=== PATIENT | female | born 1950 | race Caucasian/White ===

== ENCOUNTER 2023-02-15 08:15 | Emergency (ER) | payer MEDICARE, OTHER ==
[2023-02-15 08:42] VITALS: TEMP 98
--- NOTE | 2023-02-15 08:47 | ERPHSYRPT ---
- History of Present Illness Time Seen by Provider: 02/15/23 08:25 Source: patient Exam Limitations: no limitations Patient Subjective Stated Complaint: C/O Swelling to left hand, wrist, lower arm from a wasp sting yesterday Triage Nursing Assessment: Patient ambulated back to ER. She is alert and oriented. No SOB. No wheezing. Left hand, lower left arm are swollen. Hand is tight. Radial pulse present. Physician History: This is a 72-year-old white female patient who presents to the emergency room with swelling of her left hand in the area of a wasp sting that occurred yesterday. Patient states that she has had wasp sting in the past and they have gone away with ice. However, the swelling in the dorsal aspect of her left hand has increased despite ice pack and Claritin antihistamine. Patient has no difficulty swallowing and no shortness of breath. She denies chest pain. She has no wheezing and no stridor. This patient has a history of diabetes, hypertension, coronary disease and hyperlipidemia. Timing/Duration: yesterday Quality: itchy Severity: mild Location: hands (Left hand) Possible Causes: insect sting Modifying Factors: Improves With: antihistamine (Did not help much) Associated Symptoms: denies symptoms Allergies/Adverse Reactions: Penicillins Allergy (Verified 02/15/23 08:24) Hx Tetanus, Diphtheria Vaccination/Date Given: Yes Hx Influenza Vaccination/Date Given: Yes Hx Pneumococcal Vaccination/Date Given: Yes Immunizations Up to Date: Yes Travel Risk - International Travel Have you traveled outside of the country in past 3 weeks: No - Coronavirus Screening Are you exhibiting any of the following symptoms?: No Close contact with a COVID-19 positive Pt in past 14-21 Days: No - Vaccine Status Have you recieved a Covid-19 vaccination: Yes 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 - Review of Systems Constitutional: No Symptoms Eyes: No Symptoms Ears, Nose, & Throat: No Symptoms Respiratory: No Symptoms Cardiac: No Symptoms Abdominal/Gastrointestinal: No Symptoms Genitourinary Symptoms: No Symptoms Musculoskeletal: Other (Swelling left hand) Skin: Other (Swelling left hand) Neurological: No Symptoms Psychological: No Symptoms Endocrine: No Symptoms Hematologic/Lymphatic: No Symptoms Immunological/Allergic: No Symptoms All Other Systems: Reviewed and Negative - Past Medical History Pertinent Past Medical History: Yes Neurological History: No Pertinent History ENT History: No Pertinent History Cardiac History: Coronary Artery Disease, High Cholesterol, Hypertension, Myocardial Infarction ([place]) Respiratory History: No Pertinent History Endocrine Medical History: Diabetes Type II Musculoskeletal History: No Pertinent History History: No Pertinent History Psycho-Social History: No Pertinent History Female Reproductive Disorders: No Pertinent History - Past Surgical History Past Surgical History: Yes Cardiac: Cardiac Catheterization, Cardiac Stent Female Surgical History: Hysterectomy, Section Other Surgical History: back surgery - Social History Smoking Status: Never smoker Exposure to second hand smoke: No Drug Use: none Patient Lives Alone: No - Nursing Vital Signs Nursing Vital Signs: Initial Vital Signs Temperature 98 F 02/15/23 08:17 Pulse Rate 68 02/15/23 08:17 Respiratory Rate 17 02/15/23 08:17 Blood Pressure 165/86 02/15/23 08:17 O2 Sat by Pulse Oximetry 97 02/15/23 08:17 Pain Scale Pain Intensity 7 - Physical Exam General Appearance: no apparent distress, alert Eye Exam: PERRL/EOMI, eyes nml inspection Ears, Nose, Throat Exam: normal ENT inspection, moist mucous membranes Neck Exam: normal inspection, non-tender, supple, full range of motion Respiratory Exam: normal breath sounds, lungs clear, airway intact, No chest tenderness, No respiratory distress Cardiovascular Exam: regular rate/rhythm, normal heart sounds, normal peripheral pulses Gastrointestinal/Abdomen Exam: No tenderness Rectal Exam: not done Back Exam: normal inspection, normal range of motion, No CVA tenderness, No ve rtebral tenderness Extremity Exam: normal range of motion, pelvis stable, swelling (Left hand and distal wrist on the left side), other (No cellulitis) Neurologic Exam: alert, oriented x 3, 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 The level of complexity in the work-up performed is based on review of the patient's past medical history, review of the patient's medication list, review the patient's drug allergy list, history of present illness and physical findings on examination. No laboratory or radiographic studies are necessary in this patient. We will provide the patient with 125 mg intramuscular Solu-Medrol, 40 mg of Pepcid orally and 25 mg of hydroxyzine orally. We will reassess the patient prior to discharge to home. We will remotely send similar medication prescriptions to her pharmacy. Counseled pt/family regarding: diagnosis, need for follow-up Medical Desision Making - Diagnostic Testing Diagnostic test were ordered, analyzed, and reviewed by me: No - Risk of complications The pt has a mod risk of morbidity or mortality based on: Need for prescription drug management - Departure Departure Disposition: Home Clinical Impression: Allergic reaction Condition: Stable Critical Care Time: No Referrals: MECCA TATUM MD [Primary Care Provider] - Follow up/PCP as directed Additional Instructions: Keep site clean daily with soap and water. Take your medication as prescribed. Hold on the Claritin while taking your hydroxyzine antihistamine. Prescriptions: Hydroxyzine HCl 25 mg [Atarax 25 mg] 25 mg PO Q8H #12 tablet Prednisone 10 mg [Deltasone 10 mg] 10 mg PO TID #12 tablet Famotidine 20 mg [Pepcid 20 MG] 20 mg PO DAILY #5 tablet
[2023-02-15] MEDS ORDERED: solu-MEDROL 125 MG, Sterile H2O 10 ml 2 ML IM ONE ×2 (08:51)
[2023-02-15] MEDS ORDERED: Pepcid 20 MG PO ONE (08:52)
[2023-02-15] MEDS ORDERED: ATARAX 25 MG PO ONE (08:52)
[2023-02-15] MEDS ORDERED: Sterile H2O 10 ml IJ ONE (08:56)
[2023-02-15] MEDS ORDERED: ATARAX 25 MG ONE (08:56)
[2023-02-15] MEDS ORDERED: Pepcid 20 MG ONE (08:56)
[2023-02-15] MEDS ORDERED: solu-MEDROL ONE (08:56)
[2023-02-15 09:24] VITALS: RESP 18
[2023-02-15 09:48] VITALS: BP 183/94; PULSE 70; O2SAT 97
== END 2023-02-15 09:45 | disposition home or self-care (01) ==
LOC: ED 08:15
DX: T63.461A Toxic effect of venom of wasps, accidental (unintentional), initial encounter (principal); R22.32 Localized swelling, mass and lump, left upper limb; E11.9 Type 2 diabetes mellitus without complications; I10 Essential (primary) hypertension; E78.5 Hyperlipidemia, unspecified; Z79.52 Long term (current) use of systemic steroids; Z79.899 Other long term (current) drug therapy
CPT/HCPCS: 96372; 99283; J2930; A9270-GY

== ENCOUNTER 2025-04-24 13:56 | Inpatient (IN) | payer MEDICARE, OTHER ==
--- NOTE | 2025-04-24 16:51 | PCM.HP ---
History of Present Illness - Chief Complaint Chief Complaint: SWINGBED D/T SYNCOPAL EPISODE Date: 04/24/25 History of Present Illness: is a 75 year old female with PMHX of CAD, HTN, DE, Hyperlipidemia, and type II DM. She was transferred here from [facility] for a swing bed. She was admitted there after a syncopal episode found to be caused by dehydration. She continues to have syncope and dx with BPPV and meclizine has helped with this. We will continue this med IP. She is here to work with PT and OT and hopefully her sxs will improve. She denies any further concerns at this time. - Review of Systems Constitutional: No Fever, No Chills Eyes: No Symptoms Ears, Nose, & Throat: No Symptoms Respiratory: No Cough, No Short Of Breath Cardiac: No Chest Pain, No Edema, No Syncope Abdominal/Gastrointestinal: No Abdominal Pain, No Nausea, No Vomiting, No Diarrhea Genitourinary Symptoms: No Dysuria Musculoskeletal: No Back Pain, No Neck Pain Skin: No Rash Neurological: Dizziness, No Focal Weakness, No Sensory Changes Psychological: No Symptoms Endocrine: No Symptoms Hematologic/Lymphatic: No Symptoms Immunological/Allergic: No Symptoms Medications & Allergies Home Medications: Home Medication List Aspirin EC 81 mg [Ecotrin 81 mg] 1 tab PO DAILY 02/15/23 [History Confirmed 04/24/25] Atorvastatin Calcium [Lipitor] 1 tab PO DAILY 02/15/23 [History Confirmed 04/24/25] Clopidogrel Bisulfate [Clopidogrel] 1 tab PO DAILY 02/15/23 [History Confirmed 04/24/25] Ezetimibe 10 mg [Zetia 10 MG] 1 tab PO DAILY 02/15/23 [History Confirmed 04/24/25] Potassium Chloride [Klor-Con M20] 1 tab PO DAILY 02/15/23 [History Confirmed 04/24/25] Allergies/Adverse Reactions: Allergies Allergy/AdvReac Type Severity Reaction Status Date / Time Penicillins Allergy Verified 02/15/23 08:24 - Past Medical History Past Medical History: Yes Neurological History: No Pertinent History ENT History: No Pertinent History Cardiac History: Coronary Artery Disease, High Cholesterol, Hypertension, Myocardial Infarction ([place]) Respiratory History: No Pertinent History Endocrine Medical History: Diabetes Type II Musculoskelatal History: No Pertinent History History: No Pertinent History Pyscho-Social History: No Pertinent History Reproductive Disorders: No Pertinent History - Past Surgical History Past Surgical History: Yes Cardiac History: Cardiac Catheterization, Cardiac Stent Female Surgical History: Hysterectomy, Section Other Surgical History: back surgery Significant Family History: no pertinent family hx - Social History Smoking Status: Never smoker Exposure to second hand smoke: No Alcohol: None Drug Use: none - Physical Exam General Appearance: no apparent distress, alert Neurologic Exam: alert, oriented x 3, 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, 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, normal mood/affect, nml cerebellar function, nml station & gait, sensation nml, No motor deficits Eye Exam: PERRL/EOMI, eyes nml inspection Ears, Nose, Throat Exam: normal ENT inspection, TMs normal, pharynx normal, moist mucous membranes Neck Exam: normal inspection, non-tender, supple, full range of motion Respiratory Exam: normal breath sounds, lungs clear, No respiratory distress Cardiovascular Exam: regular rate/rhythm, normal heart sounds, normal peripheral pulses Gastrointestinal/Abdomen Exam: soft, normal bowel sounds, No tenderness, No mass Back Exam: normal inspection, normal range of motion, No CVA tenderness, No vertebral tenderness Extremity Exam: normal inspection, normal range of motion, pelvis stable Skin Exam: normal color, warm, dry, No rash Lymphatic Exam: No adenopathy Assessment/Plan (1) BPPV (benign paroxysmal positional vertigo) Current Visit: Yes Status: Acute Assessment & Plan: - Continue meclizine - PT/OT Code(s): H81.10 - BENIGN PAROXYSMAL VERTIGO, UNSPECIFIED EAR (2) HTN (hypertension) Current Visit: Yes Status: Chronic Assessment & Plan: - BP elevated- trend - Currently not taking any home meds - hydralizine PRN Code(s): I10 - ESSENTIAL (PRIMARY) HYPERTENSION (3) CAD (coronary artery disease) Current Visit: Yes Status: Chronic Assessment & Plan: - Tele - Continue home meds Code(s): I25.10 - ATHSCL HEART DISEASE OF [place] CORONARY ARTERY W/O ANG PCTRS (4) Hyperlipemia Current Visit: Yes Status: Chronic Assessment & Plan: - Continue statin Code(s): E78.5 - HYPERLIPIDEMIA, UNSPECIFIED (5) Type II diabetes mellitus Current Visit: Yes Status: Acute Qualifiers: Diabetes mellitus long-term insulin use: without 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 - Accuchecks AC/HS - Humalog S/S VTE: Plavix Next of KIN: Son D/C plan: When ready Code status: Full Plan of care time: > 45 minutes Telemedicine Encounter - Telemedicine Encounter Telemedicine Encounter: "The entirety of this encounter was performed via Telemedicine" This visit was performed using real-time audio and video connection between my location and thepatients locationwith the assistance of a surrogateat the patients location. Written or verbal consent was obtained from the patient/guardian to perform this visit usingnchrFoodEssentialstelemedicine technology. Any patient questions regarding the telemedicine interaction were answered.
[2025-04-24] MEDS ORDERED: HUMALOG SQ PRN (18:41)
[2025-04-25 05:29] LABS: Hematocrit 37.5 % (34.1-44.9); Hemoglobin 11.8 g/dL (11.2-15.7); Mean Corpuscular Hemoglobin 28.9 pg (25.6-32.2); Mean Corpuscular Hgb Concent. 31.5 g/dL (32.2-35.5); Platelet Count 231 x10^3/uL (182-369); Red Blood Count 4.09 x10^6/uL (3.93-5.22); White Blood Count 8.9 x10^3/uL (3.98-10.04)
[2025-04-25 06:03] LABS: Calcium 8.4 mg/dL (8.4-10.2); Carbon Dioxide 28.0 mmol/L (22-30); Creatinine 1 0.54 mg/dL (0.52-1.04); EST GLOMERULAR FILTRATION RATE 94.8 ML/MIN; Glucose 103.0 mg/dL (74-106); Potassium 3.2 mmol/L (3.5-5.1); SGOT/AST 16.0 U/L (14-36); SGPT/ALT 9.0 U/L (0-35); Total Protein 5.7 g/dL (6.3-8.2)
[2025-04-25] MEDS: K-LYTE PO SCH (08:58)
[2025-04-25] MEDS ORDERED: NON-FORMULARY ITEM (Potassium Chloride [Klor-Con M20] 20 MEQ Tab.Er.Prt) PO SCH (10:00)
[2025-04-25] MEDS ORDERED: Klor Con PO SCH (10:00)
[2025-04-25] MEDS ORDERED: NON-FORMULARY ITEM (Atorvastatin Calcium [Lipitor] 80 MG Tablet) PO SCH (10:00)
[2025-04-25] MEDS: PLAVIX Tablet PO SCH (10:01)
[2025-04-25] MEDS: ECOTRIN 81 MG PO SCH (10:01)
[2025-04-25] MEDS: Zetia 10 MG PO SCH (10:02)
[2025-04-25] MEDS: ZOCOR 20MG PO SCH (10:02)
[2025-04-25] MEDS: ANTIVERT 25 MG PO PRN (10:03)
[2025-04-25] MEDS: Aplisol ID ONE (10:47)
[2025-04-25] MEDS: Toprol Xl 50 MG PO SCH (11:56)
[2025-04-25] MEDS: Zestril 20 MG PO SCH (11:56)
[2025-04-26] MEDS: Vitamin B-12 500 MCG PO SCH (09:18)
[2025-04-26] MEDS ORDERED: NON-FORMULARY ITEM (Cyanocobalamin (Vitamin B-12) [Vitamin B-12] 1,000 MCG Tablet) PO SCH (10:00)
[2025-04-27] MEDS: APRESOLINE 20 MG/ML INJ IV PRN (20:18)
[2025-04-30 04:48] LABS: Hematocrit 36.3 % (34.1-44.9); Hemoglobin 11.4 g/dL (11.2-15.7); Mean Corpuscular Hemoglobin 29.2 pg (25.6-32.2); Mean Corpuscular Hgb Concent. 31.4 g/dL (32.2-35.5); Platelet Count 270 x10^3/uL (182-369); Red Blood Count 3.91 x10^6/uL (3.93-5.22); White Blood Count 8.2 x10^3/uL (3.98-10.04)
[2025-04-30 05:08] LABS: Calcium 8.2 mg/dL (8.4-10.2); Carbon Dioxide 26.0 mmol/L (22-30); Creatinine 1 0.57 mg/dL (0.52-1.04); EST GLOMERULAR FILTRATION RATE 93.5 ML/MIN; Glucose 114.0 mg/dL (74-106); Potassium 3.6 mmol/L (3.5-5.1); SGOT/AST 17.0 U/L (14-36); SGPT/ALT 9.0 U/L (0-35); Total Protein 5.9 g/dL (6.3-8.2)
--- NOTE | 2025-04-30 11:17 | PCM.NOTE ---
Date and Time: 04/30/25 1114 Subjective Assessment: Ms. Salamanca is a 75-year-old female with a significant past medical history of coronary artery disease, hypertension, prior myocardial infarction, hyperlipidemia, and type 2 diabetes mellitus. She was transferred from [facility] for swing bed rehabilitation following hospitalization for a syncopal episode attributed to dehydration. During her acute stay, she experienced recurrent lightheadedness and positional dizziness consistent with benign paroxysmal positional vertigo (BPPV), which improved with meclizine. Orthostatic vitals stabilized with rehydration. Laboratory studies 04/30/25 unremarkable on admission revealed mild electrolyte imbalance consistent with prior dehydration, now resolved. Her glucose readings have remained stable on sliding scale coverage, and renal function has normalized. Cardiac telemetry has shown no new ischemic changes or arrhythmias. Since admission to swing bed, the patient has participated in physical and occupational therapy, focusing on balance and ambulation tolerance. She reports significant improvement in dizziness and strength. Blood pressure readings have remained intermittently elevated but stable overall. She denies chest pain, palpitations, or shortness of breath. Discussed case with PT and son as he is concerned about patient being discharged home with walker and patient still requiring walker especially when turning corners- he would like patient to continue IPPT until she no longer needs it. Discussed that patient may still need walker for safety at discharge, discussed life alert and HHC at discharge- plan to resume Meclizine as needed to help with dizziness. - Review of Systems Constitutional: No Symptoms Eyes: No Symptoms Ears, Nose, & Throat: No Symptoms Respiratory: No Symptoms Cardiac: No Symptoms Abdominal/Gastrointestinal: No Symptoms Genitourinary Symptoms: No Symptoms Musculoskeletal: No Symptoms Skin: No Symptoms Neurological: Dizziness Psychological: No Symptoms Endocrine: No Symptoms Hematologic/Lymphatic: No Symptoms Immunological/Allergic: No Symptoms Objective Exam General Appearance: no apparent distress Neurologic Exam: alert, oriented x 3, cooperative Skin Exam: normal color Eye Exam: PERRL Ears, Nose, Throat Exam: normal ENT inspection Neck Exam: normal inspection Respiratory Exam: normal breath sounds, lungs clear Cardiovascular Exam: regular rate/rhythm, normal heart sounds Gastrointestinal/Abdomen Exam: soft, normal bowel sounds Extremity Exam: normal inspection Back Exam: normal inspection Pelvic Exam: deferred Rectal Exam: deferred Objective Data Vital Signs: Vital Signs - 24 hr Temp Pulse Resp BP Pulse Ox 04/30/25 08:00 97.5 F 80 22 140/74 95 04/29/25 19:51 99.5 F 88 16 139/62 97 Pain Assessment - Last Documented Pain Intensity 0 Intake and Output: Intake & Output 04/27/25 04/28/25 04/29/25 04/30/25 11:59 11:59 11:59 11:59 Intake Total 1300 1200 2030 2100 Balance 1300 1200 2030 2100 Weight 77.5 kg 77.9 kg Lab Results: Lab Results-Last 24 Hours 04/30/25 04/30/25 04/30/25 Range/Units 04:10 04:10 07:35 WBC 8.2 (3.98-10.04) x10^3/uL RBC 3.91 L (3.93-5.22) x10^6/uL Hgb 11.4 (11.2-15.7) g/dL Hct 36.3 (34.1-44.9) % MCV 92.8 (79.4-94.8) fL MCH 29.2 (25.6-32.2) pg MCHC 31.4 L (32.2-35.5) g/dL RDW 13.6 (11.7-14.4) % Plt Count 270 (182-369) x10^3/uL MPV 9.5 (9.4-12.3) fL Sodium 137 (135-145) mmol/L Potassium 3.6 (3.5-5.1) mmol/L Chloride 107 (98-107) mmol/L Carbon Dioxide 26 (22-30) mmol/L Anion Gap 8.5 (5-15) MEQ/L BUN 13 (7-17) mg/dL Creatinine 0.57 (0.52-1.04) mg/dL Estimated GFR 93.5 ML/MIN Glucose 114 H (74-106) mg/dL POC Glucometer 98 (74 to 106) mg/dL Calcium 8.2 L (8.4-10.2) mg/dL Total Bilirubin 0.30 (0.2-1.3) mg/dL AST 17 (14-36) U/L ALT 9 (0-35) U/L Alkaline Phosphatase 88 (38-126) U/L Serum Total Protein 5.9 L (6.3-8.2) g/dL Albumin 3.3 L (3.5-5.0) g/dL Medications: Medications Generic Name Dose Route Start Last Admin Trade Name Apq PRN Reason Stop Dose Admin Aspirin 81 mg 04/25/25 10:00 04/30/25 09:21 Aspirin 81 Mg Tablet.Ec PO 05/25/25 09:59 81 mg DAILY ANTONIETA Administration Clopidogrel Bisulfate 75 mg 04/25/25 10:00 04/30/25 09:20 Clopidogrel Bisulfate 75 Mg Tablet PO 05/25/25 09:59 75 mg DAILY ANTONIETA Administration Cyanocobalamin 1,000 mcg 04/26/25 10:00 04/30/25 09:21 Cyanocobalamin 500 Mcg Tablet PO 05/26/25 09:59 1,000 mcg DAILY ANTONIETA Administration Ezetimibe 10 mg 04/25/25 10:00 04/30/25 09:21 Ezetimibe 10 Mg Tab PO 05/25/25 09:59 10 mg DAILY ANTONIETA Administration Hydralazine HCl 10 mg 04/24/25 18:33 Hydralazine Hcl 20 Mg/Ml Vial IV 05/24/25 18:32 Q4H PRN PRN HYPERTENSION Insulin Human Lispro 0 unit 04/24/25 18:41 Insulin Lispro 1 Unit SQ 05/24/25 18:40 UD PRN HYPERGLYCEMIA Lisinopril 20 mg 04/25/25 12:30 04/30/25 09:20 Lisinopril 20 Mg Tablet PO 05/25/25 12:29 20 mg DAILY ANTONIETA Administration Meclizine HCl 12.5 mg 04/24/25 18:10 04/30/25 09:20 Meclizine Hcl 25 Mg Tablet PO 05/24/25 18:09 12.5 mg QID PRN PRN Administration DIZZINESS Metoprolol Succinate 50 mg 04/25/25 12:30 04/30/25 09:20 Metoprolol Succinate 50 Mg Tablet.Sa PO 05/25/25 12:29 50 mg DAILY ANTONIETA Administration Simvastatin 40 mg 04/25/25 10:00 04/30/25 09:21 Simvastatin 20 Mg Tablet PO 05/25/25 09:59 40 mg DAILY ANTONIETA Administration Discontinued Medications Generic Name Dose Route Start Last Admin Trade Name Apq PRN Reason Stop Dose Admin Potassium Bicarbonate 25 meq 04/25/25 08:00 04/25/25 11:56 Potassium Bicarbonate 25 Meq Tab PO 04/25/25 12:01 25 meq Q2H ANTONIETA Administration Potassium Chloride 20 meq 04/25/25 10:00 Potassium Chloride Tab 10 Meq Tab PO 05/25/25 09:59 DAILY ANTONIETA Tuberculin PPD 5 unit 04/24/25 13:59 04/25/25 10:47 Aplisol (Tuberculin,Purif.Prot.Deriv.) 5 Unit/0.1 Ml Ml ID 04/24/25 14:00 5 unit ONCE ONE Administration Assessment/Plan (1) BPPV (benign paroxysmal positional vertigo) Current Visit: Yes Status: Acute Assessment & Plan: -Continue meclizine as needed for dizziness. -Continue participation in physical and occupational therapy for vestibular rehabilitation and balance training. -Encourage slow positional changes and maintain adequate hydration. 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 -Continue bedside glucose monitoring before meals and at bedtime (AC/HS). -Utilize sliding-scale insulin (Humalog) for glycemic control. -Reinforce diabetic diet and hydration. (3) CAD (coronary artery disease) Current Visit: Yes Status: Chronic Assessment & Plan: -Continue telemetry monitoring for arrhythmias or ischemic changes. -Maintain home cardiac medications including statin and Plavix. -Encourage gradual increase in activity as tolerated under therapy supervision. Code(s): I25.10 - ATHSCL HEART DISEASE OF [place] CORONARY ARTERY W/O ANG PCTRS (4) HTN (hypertension) Current Visit: Yes Status: Chronic Assessment & Plan: -Blood pressure remains elevated; continue to monitor and trend readings. -Patient currently not on home antihypertensive therapy. -Administer hydralazine as needed for systolic BP > 180 threshold. -Reinforce low-sodium diet and ongoing monitoring during therapy sessions. Code(s): I10 - ESSENTIAL (PRIMARY) HYPERTENSION (5) Hyperlipemia Current Visit: Yes Status: Chronic Assessment & Plan: -continue statin Code(s): E78.5 - HYPERLIPIDEMIA, UNSPECIFIED
[2025-05-01] MEDS: ANTIVERT 25 MG PO SCH (10:24)
[2025-05-03 20:19] VITALS: O2SAT 97
[2025-05-04 07:17] VITALS: BP 168/71; PULSE 70; RESP 16; TEMP 98.5
--- NOTE | 2025-05-04 11:52 | PCM.DS ---
Discharge Summary Date of Admission: 04/24/25 16:21 Date of Discharge: 05/04/25 Admitting Physician: OK RÍOS MD Primary Care Provider: MECCA TATUM MD Allergies Allergies Penicillins Allergy (Verified 02/15/23 08:24) Hospital Summary - Hospital Course Hospital Course: Ms. Salamanca is a 75-year-old female with a past medical history significant for coronary artery disease, prior myocardial infarction, hypertension, hyperlipidemia, and type 2 diabetes mellitus. She was admitted to swing bed rehabilitation following an acute hospitalization at [facility] for a syncopal episode secondary to dehydration. During her prior hospitalization, she experienced recurrent lightheadedness and positional dizziness consistent with benign paroxysmal positional vertigo (BPPV), which improved with meclizine and rehydration. On transfer, laboratory evaluation from 04/30/25 demonstrated mild residual electrolyte imbalance (hypokalemia, mild hyponatremia) consistent with prior dehydration, now resolved with intravenous fluids and normalized renal function. Glucose values have remained stable under sliding scale coverage, and cardiac telemetry has shown no new ischemic changes or arrhythmias. Throughout her swing bed course, she participated in daily physical and occupational therapy aimed at vestibular rehabilitation, balance retraining, and ambulation tolerance. She demonstrated steady improvement in gait stability and endurance, though continues to require a rolling walker for safety, particularly when navigating turns. Blood pressure readings were intermittently elevated but stable without end-organ symptoms. She has denied chest pain, palpitations, or dyspnea. Her son expressed concern about her safety at home; discharge planning included a home safety evaluation, Life Alert recommendation, and outpatient PT follow-up. As of 05/04/25, the patient reports resolution of dizziness and has been declining scheduled meclizine, though she agreed to continue it on an as- needed basis. PT has cleared her for discharge home with a rolling walker, and arrangements were made for placement of a Holter monitor as ordered during her prior admission. I spent 35 minutes [id number] with the patient on the day of discharge performing discharge exam, discussing hospital stay and discharge instructions with patient and caregivers, preparation of discharge records, prescriptions & referral forms and addressing any questions/concerns the patient had as documented above. - Vitals & Intake/Output Vital Signs: Vital Signs Temperature 98.5 F 05/04/25 07:15 Pulse Rate 70 05/04/25 07:15 Respiratory Rate 16 05/04/25 07:15 Blood Pressure 168/71 05/04/25 07:15 O2 Sat by Pulse Oximetry 97 05/04/25 07:15 Intake & Output: Intake & Output 05/01/25 05/02/25 05/03/25 05/04/25 11:59 11:59 11:59 11:59 Intake Total 960 3545 752 6722 Balance 960 8190 773 5398 Weight 77.5 kg - Lab Result Diagrams: 04/30/25 04:10 04/30/25 04:10 - Procedures and Test Procedures and Tests throughout Hospitalization: Therapy Orders & Screens 04/24/25 13:59 PT Eval & Treat (MD Order) ONCE Reason for Eval:: SWINGBED D/T SYNCOPAL EPISODE Diagnosis: DECONDITIONING R/T SYNCOPAL EPISODE WITH FALL AND HEAD TRAUMA OT Eval and Treat (MD Order) ONCE Comment: Physician Instructions: Reason For Exam: Diagnosis: SWINGBED D/T SYNCOPAL EPISODE 04/25/25 12:51 PT Clarification Order ROUTINE Comment: Physician Instructions: EVAL AND TREAT Reason For Exam: DIZZINESS PT Clarification: PATIENT TO BE SEEN 2X/DAY PER LENGHT OF STAY FOR TREATMENT OF BPPV/DIZZINESS, DECREASED BALANCE, WEAKNESS AND DIFFICULTY WALKING. 04/25/25 13:15 OT Clarification Order ROUTINE Comment: Physician Instructions: Reason For Exam: OT Clarification: PATIENT WOULD BENEFIT FROM FURTHER SKILLED OT 5X/WEEK TO ADDRESS GENERALIZED WEAKNESS, DECREASED ACTIVITY TOLERANCE, AND DIZZINESS IN ORDER TO IMPROVE INDEPENDENCE WITH FUNCTIONAL TRANSFERS AND I/ADLS. Discharge Exam General Appearance: no apparent distress Neurologic Exam: alert, oriented x 3, cooperative Eye Exam: PERRL Ears, Nose, Throat Exam: normal ENT inspection Neck Exam: normal inspection Respiratory Exam: normal breath sounds, lungs clear Cardiovascular Exam: regular rate/rhythm, normal heart sounds Gastrointestinal/Abdomen Exam: soft, normal bowel sounds Pelvic Exam: deferred Rectal Exam: deferred Back Exam: normal inspection Extremity Exam: normal inspection Skin Exam: normal color Final Diagnosis/Problem List - Final Discharge Diagnosis/Problem (1) BPPV (benign paroxysmal positional vertigo) Current Visit: Yes Status: Acute Assessment & Plan: Dizziness resolved; patient clinically improved. Continue meclizine 25 mg PO PRN for dizziness; may consider scheduled dosing if symptoms recur. Continue outpatient physical therapy for vestibular and balance rehabilitation. Maintain adequate hydration and slow positional transitions. Consider ENT referral if vertigo recurs or persists beyond several weeks. Holter monitor placement on discharge per prior cardiology recommendation. Code(s): H81.10 - BENIGN PAROXYSMAL VERTIGO, UNSPECIFIED EAR (2) Type II diabetes mellitus Current Visit: Yes Status: Acute Assessment & Plan: Hemoglobin A1c 5.4%, with glucose readings well controlled on sliding scale insulin only. Continue AC/HS glucose monitoring and sliding-scale Humalog as needed. No chronic antihyperglycemic therapy resumed at this time. Reinforce diabetic diet, hydration, and consistent meal intake. Follow-up: Primary care provider to reassess need for maintenance oral therapy. (3) CAD (coronary artery disease) Current Visit: Yes Status: Chronic Assessment & Plan: No chest pain, dyspnea, or new ischemic changes on telemetry. Continue Plavix 75 mg daily and statin therapy for secondary prevention. Encourage gradual increase in activity as tolerated under outpatient PT guidance. Maintain risk factor control (blood pressure, lipid, and glucose management). Code(s): I25.10 - ATHSCL HEART DISEASE OF [place] CORONARY ARTERY W/O ANG PCTRS (4) HTN (hypertension) Current Visit: Yes Status: Chronic Assessment & Plan: BP intermittently elevated but asymptomatic during rehab stay. Continue BP monitoring and lifestyle modifications including low-sodium diet and adequate hydration. Recommend outpatient follow-up for potential resumption of chronic antihypertensive regimen once home readings are available. Code(s): I10 - ESSENTIAL (PRIMARY) HYPERTENSION (5) Hyperlipemia Current Visit: Yes Status: Chronic Assessment & Plan: Continue atorvastatin for lipid management. Follow-up: PCP within 1 week for medication review and BP/glucose follow-up. Cardiology for Holter interpretation and ongoing CAD management. Outpatient PT for continued vestibular and balance therapy. Code(s): E78.5 - HYPERLIPIDEMIA, UNSPECIFIED - Discharge Discharge Date: 05/04/25 Disposition: Home, Self-Care Condition: Stable Prescriptions: Continue Clopidogrel Bisulfate [Clopidogrel] 75 mg PO DAILY Aspirin EC 81 mg [Ecotrin 81 mg] 81 mg PO DAILY Ezetimibe 10 mg [Zetia 10 MG] 10 mg PO DAILY Atorvastatin Calcium [Lipitor] 80 mg PO DAILY Metoprolol Succinate 50 mg [Toprol Xl 50 MG] 50 mg PO DAILY Meclizine HCl 25 mg PO QID Cyanocobalamin (Vitamin B-12) [Vitamin B-12] 1,000 mcg PO DAILY Lisinopril 20 mg [Zestril 20 MG] 20 mg PO DAILY Semaglutide [Ozempic] 0.5 mg SQ .MONDAYS Outpatient Orders: Physical Therapy Eval & Treat Facility: [facility]. Hosp, Location: PHYSICAL THERAPY Instructions: Coronary artery disease Additional Instructions: YOUR FIRST APT WITH PHYSICAL THERAPY IS 05/09@11 AM FOLLOW INSTRUCTIONS GIVEN TO YOU REGARDING YOUR HEAR MONITOR- RETURN DIRECTED Follow up with: BINU HATHAWAY [CONSULTING PHYSICIAN, CARDIOLOGY] - 05/08/25 8:30 am SIMEON GOMEZ, TRACK LABORER [NON-STAFF PHY W/O PRIVILEGES, UNKNOWN] - 10/24/25 9:30 am Referral Note: [facility] 3RD FLOOR GAUTAM WHITMAN NP [NON-STAFF PHY W/O PRIVILEGES, UNKNOWN] - 05/09/25 11:00 am Referral Note: [facility] OFF[facility] FOR LULÚ KINNEY FNP [NON-STAFF PHY W/O PRIVILEGES, UNKNOWN] - 07/16/25 11:00 am Referral Note: [facility] 3RD FLOOR
== END 2025-05-04 16:00 | disposition home or self-care (01) | DRG 149 ==
LOC: MED SURG 16:21
PROVIDERS: ADMIT Internal Medicine; ATTEND Internal Medicine
DX: H81.10 Benign paroxysmal vertigo, unspecified ear (principal); E87.1 Hypo-osmolality and hyponatremia; E11.9 Type 2 diabetes mellitus without complications; I25.10 Atherosclerotic heart disease of native coronary artery without angina pectoris; I10 Essential (primary) hypertension; Z79.899 Other long term (current) drug therapy; Z79.01 Long term (current) use of anticoagulants; E78.5 Hyperlipidemia, unspecified; E87.6 Hypokalemia